=== PATIENT | female | born 1980 | race Caucasian/White ===

== ENCOUNTER → 2017-04-12 | Outpatient (CLI) | payer OTHER ==
--- NOTE | 2017-04-12 17:56 | RADIOLOGY REPORT (SQ) ---
EXAM DESCRIPTION: U/S THYROID/SFT TISS HD NECK COMPLETED DATE/TIME: 04/12/2017 5:23 pm REASON FOR STUDY: R22.1 LOCALIZED SWELLING, MASS AND LUMP, NECK R22.1 LOCALIZED SWELLING, MASS AND LUMP, NECK COMPARISON: None. TECHNIQUE: Dynamic and static tobar-scale images acquired of the thyroid gland. Selected additional c olor/power Doppler images recorded. All images stored to PACS. LIMITATIONS: None. FINDINGS: RIGHT LOBE: Normal size. Homogeneous echotexture. No cystic or solid masses. LEFT LOBE: Normal size. Homogeneous echotexture. No cystic or solid masses. ISTHMUS: Normal size. Homogeneous echotexture. No cystic or solid masses. OTHER: No other significant finding. IMPRESSION: NORMAL THYROID ULTRASOUND. NO ABNORMAL FINDINGS IN THE ADJACENT SOFT TISSUES OF THE NEC K. TECHNICAL DOCUMENTATION: JOB ID: [id number] [employer]- All Rights Reserved
== END ==
LOC: RAD 16:34
PROVIDERS: ATTEND Family Medicine
DX: R22.1 Localized swelling, mass and lump, neck (principal)
CPT/HCPCS: 76536

== ENCOUNTER 2017-04-15 10:58 | Day surgery (SDC) | payer OTHER ==
[2017-04-15] MEDS ORDERED: ONDANSETRON HCL INJ/PF 4 MG/2 ML SDV ONE (12:16)
[2017-04-15] MEDS ORDERED: NALOXONE HCL INJ/PF 0.4 MG/1 ML SDV ONE (12:16)
[2017-04-15] MEDS ORDERED: GLYCOPYRROLATE INJ 0.4 MG/2 ML VIAL ONE (12:16)
[2017-04-15] MEDS ORDERED: EPINEPHRINE INJ 1 MG/10 ML DISP.SYRIN ONE (12:17)
[2017-04-15] MEDS ORDERED: FLUMAZENIL INJ 0.5 MG/5 ML VIAL ONE (12:17)
[2017-04-15] MEDS: MIDAZOLAM 2 MG/2 ML INJ ONE ×2 (12:24→12:28)
[2017-04-15] MEDS: FENTANYL CITRATE INJ/PF 100 MCG/2 ML AMPUL ONE ×2 (12:26→12:30)
--- NOTE | 2017-04-15 12:40 | Operative Report ---
Operative Report DATE OF SURGERY: 04/15/17 Operative Report: The risks benefits and alternatives of the procedure explained to the patient in detail and informed consent is obtained.A GIF Olympus video scope was inserted into the patient's mouth and hypopharynx, the esophagus is identified intubated and insufflated, the scope was then advanced through the esophagus stomach and duodenum, retroflexion maneuver is done, the esophagus stomach and first and second portions of the duodenum examined PREOPERATIVE DIAGNOSIS: Epigastric pain, right upper quadrant pain. POSTOPERATIVE DIAGNOSIS: Gastritis status post biopsy rule out Helicobacter pylori OPERATION: EGD with biopsy SURGEON: RODRÍGUEZ GRAHAM ANESTHESIA: LMAC - 4 mg of Versed, 125 mcg of fentanyl. Conscious sedation monitoring time 30 minutes. TISSUE REMOVED OR ALTERED: Gastric mucosal specimens obtained COMPLICATIONS: None. ESTIMATED BLOOD LOSS: None. INTRAOPERATIVE FINDINGS: As noted above. PROCEDURE: Patient tolerated procedure well. No immediate postprocedure complications are noted. Patient discharged in good condition. Discharge date 04/15/2017. Discharge diet: Regular. Discharge activity: Regular. Proceed with HIDA scan We will wait on pathology Further recommendations to follow Patient is instructed call the office or proceed to the emergency room should there be any further problems or questions.
[2017-04-15 13:45] VITALS: BP 105/70
== END 2017-04-15 13:50 | disposition home or self-care (01) ==
LOC: END 10:58
PROVIDERS: ATTEND Internal Medicine Gastroenterology
PROC: 0DB68ZX Excision of Stomach, Via Natural or Artificial Opening Endoscopic, Diagnostic (ICD-10-PCS; principal; 2017-04-15 12:00)
DX: K29.70 Gastritis, unspecified, without bleeding (principal); K21.9 Gastro-esophageal reflux disease without esophagitis; Z79.899 Other long term (current) drug therapy; Z88.5 Allergy status to narcotic agent
CPT/HCPCS: 43239; 88305 ×2; J2250; J3010; J0171; J2310; J2405; J3490

== ENCOUNTER → 2017-04-16 | Outpatient (CLI) | payer OTHER ==
--- NOTE | 2017-04-16 11:29 | RADIOLOGY REPORT (SQ) ---
EXAM DESCRIPTION: NM HIDA SCAN WITH CCK COMPLETED DATE/TIME: 04/16/2017 11:13 am REASON FOR STUDY: RUQ PAIN (R10.11) R10.11 RIGHT UPPER QUADRANT PAIN COMPARISON: CT chest 07/25/2014 RADIONUCLIDE AND DOSE: DOSAGE RADIONUCLIDE: 5.5 millicuries Tc99m Mebrofenin. DOSAGE CCK: 1.9 micrograms. DOSAGE MORPHINE: Not required. The route of agent administration: Intravenous TECHNIQUE: Serial imaging right upper quadrant up to 60 minutes following injection of radionuclide. CCK injected after gallbladder visualized. LIMITATIONS: None. FINDINGS: LIVER: Normal visualization without areas of photopenia. INTRAHEPATIC BILE DUCTS: Normal visualization COMMON BILE DUCT: Normal visualization GALLBLADDER: Normal visualization. Calculated ejection fraction of 29%. Normal range is greater th an 35%. PHYSICAL RESPONSE: Patients presenting complaint was reproduced. OTHER: No other significant finding. IMPRESSION: NO SCINTIGRAPHIC EVIDENCE OF CYSTIC DUCT OR COMMON DUCT OBSTRUCTION. DEPRESSED GALLBLADDER EJECTION FRACTION IV CCK REPRODUCED THE PATIENT'S SYMPTOMS TECHNICAL DOCUMENTATION: JOB ID: [id number] [employer]- All Rights Reserved
== END ==
LOC: RAD 08:25
PROVIDERS: ATTEND Internal Medicine Gastroenterology
DX: R10.11 Right upper quadrant pain (principal)
CPT/HCPCS: 78227; J2805; A9537; Q9969

== ENCOUNTER 2017-05-13 13:28 | Emergency (ER) | payer OTHER ==
[2017-05-13] MEDS ORDERED: HYDROCODONE/ACETAMINOPHEN 5-325 MG TABLET PO ONE (14:53)
--- NOTE | 2017-05-13 14:54 | ER Document Report ---
ED Medical Screen (RME) - General Chief Complaint: Abdominal Pain Stated Complaint: RIGHT SIDE PAIN Time Seen by Provider: 05/13/17 14:26 Mode of Arrival: Ambulatory Information source: Patient Notes: 36-year-old female presents with complaints of right upper quadrant abdominal pain of month's duration. Patient has had ultrasounds HIDA scans. Patient notes continued pain I have greeted and performed a rapid initial assessment of this patient. A comprehensive ED assessment and evaluation of the patient, analysis of test results and completion of the medical decision making process will be conducted by additional ED providers. PHYSICAL EXAMINATION: GENERAL: Well-appearing, well-nourished and in no acute distress. HEAD: Atraumatic, normocephalic. EYES: Pupils equal round extraocular movements intact, conjunctiva are normal. ENT: Nares patent NECK: Normal range of motion LUNGS: No respiratory distress Musculoskeletal: Normal range of motion NEUROLOGICAL: Normal speech, normal gait. PSYCH: Normal mood, normal affect. SKIN: Warm, Dry, normal turgor, no rashes or lesions noted. TRAVEL OUTSIDE OF THE [place] IN LAST 30 DAYS: No - Related Data Allergies/Adverse Reactions: morphine Allergy (Severe, Verified 05/13/17 14:23) Anaphylaxis Shellfish * [Shellfish] Allergy (Severe, Verified 05/13/17 14:23) Anaphylaxis strawberry Adverse Reaction (Severe, Verified 05/13/17 14:23) Anaphylaxis watermelon Adverse Reaction (Severe, Verified 05/13/17 14:23) Anaphylaxis Past Medical History - Social History Chew tobacco use (# tins/day): No Frequency of alcohol use: Rare Drug Abuse: None - Past Medical History Cardiac Medical History: Reports: Hx Hypertension Denies: Hx Coronary Artery Disease, Hx Heart Attack Pulmonary Medical History: Reports: Hx Pneumonia Denies: Hx Asthma, Hx Bronchitis, Hx COPD Neurological Medical History: Denies: Hx Cerebrovascular Accident, Hx Seizures Renal/ Medical History: Denies: Hx Peritoneal Dialysis GI Medical History: Reports: Hx Gastroesophageal Reflux Disease Musculoskeltal Medical History: Denies Hx Arthritis Psychiatric Medical History: Reports: Hx Anxiety Past Surgical History: Reports: Hx Hysterectomy - Immunizations Hx Diphtheria, Pertussis, Tetanus Vaccination: Yes Influenza Administration Date for 12/2016 - 05/2017 Season: 12/13/16 Physical Exam - Vital signs Vitals: Temp Pulse Resp BP Pulse Ox 98.7 F 92 18 127/82 H 96 05/13/17 13:33 05/13/17 13:33 05/13/17 13:33 05/13/17 13:33 05/13/17 13:33 Course - Vital Signs Vital signs: Temp Pulse Resp BP Pulse Ox 98.7 F 92 18 127/82 H 96 05/13/17 13:33 05/13/17 13:33 05/13/17 13:33 05/13/17 13:33 05/13/17 13:33
[2017-05-13 15:25] LABS: ABSOLUTE EOSINOPHILS # (AUTO) 0.1 10^3/uL (0.0-0.6); ABSOLUTE LYMPHOCYTES (AUTO) 0.8 10^3/uL (0.5-4.7); ABSOLUTE MONOCYTES (AUTO) 0.5 10^3/uL (0.1-1.4); ABSOLUTE NEUT (AUTO) 4.6 10^3/uL (1.7-8.2); BASOPHILS % (AUTO) 0.4 % (0-2); EOSINOPHILS % (AUTO) 1.6 % (0-6); HEMATOCRIT 40.1 % (36.0-47.0); HEMOGLOBIN 14.2 g/dL (12.0-15.5); LYMPHOCYTES % (AUTO) 12.9 % (13-45); MEAN CORPUSCULAR HEMOGLOBIN 30.7 pg (27.0-33.4); MEAN CORPUSCULAR HGB CONC 35.5 g/dL (32.0-36.0); MEAN CORPUSCULAR VOLUME 87 fl (80-97); MONOCYTES % (AUTO) 7.9 % (3-13); PLATELET COUNT 194 10^3/uL (150-450); RED BLOOD COUNT 4.63 10^6/uL (3.72-5.28); RED CELL DISTRIBUTION WIDTH 12.4 % (11.5-14.0); SEGMENTED NEUTROPHILS % (AUTO) 77.2 % (42-78); TOTAL CELLS COUNTED % (AUTO) 100 %
[2017-05-13 15:38] LABS: ALANINE AMINOTRANSFERASE 32 U/L (9-52); ALBUMIN 4.5 g/dL (3.5-5.0); ALKALINE PHOSPHATASE 63 U/L (38-126); ANION GAP 11 (5-19); ASPARTATE AMINO TRANSFERASE 26 U/L (14-36); BILIRUBIN,DIRECT 0.4 mg/dL (0.0-0.4); BILIRUBIN,TOTAL 0.7 mg/dL (0.2-1.3); BLOOD UREA NITROGEN 11 mg/dL (7-20); CALCIUM 9.4 mg/dL (8.4-10.2); CARBON DIOXIDE 26 mmol/L (22-30); CHLORIDE 101 mmol/L (98-107); GLUCOSE 93 mg/dL (75-110); LIPASE 37.2 U/L (23-300); SODIUM 137.5 mmol/L (137-145); TOTAL PROTEIN 7.2 g/dL (6.3-8.2)
[2017-05-13] MEDS ORDERED: FAMOTIDINE INJ/PF 20 MG/2 ML SDV IV ONE (15:40)
[2017-05-13] MEDS ORDERED: ONDANSETRON HCL INJ/PF 4 MG/2 ML SDV IV ONE (15:40)
[2017-05-13 15:42] LABS: ALANINE AMINOTRANSFERASE 32 U/L (9-52); ALBUMIN 4.5 g/dL (3.5-5.0); ALKALINE PHOSPHATASE 63 U/L (38-126); ASPARTATE AMINO TRANSFERASE 26 U/L (14-36); BILIRUBIN,DIRECT 0.4 mg/dL (0.0-0.4); BILIRUBIN,TOTAL 0.7 mg/dL (0.2-1.3); TOTAL PROTEIN 7.2 g/dL (6.3-8.2)
--- NOTE | 2017-05-13 17:23 | RADIOLOGY REPORT (SQ) ---
EXAM DESCRIPTION: U/S ABDOMEN LIMITED W/O DOP COMPLETED DATE/TIME: 05/13/2017 5:09 pm REASON FOR STUDY: ruq pain history of poor EF COMPARISON: None. TECHNIQUE: Dynamic and static grayscale images acquired of the abdomen and recorded on PACS. Additio nal selected color Doppler and spectral images recorded. LIMITATIONS: None. FINDINGS: PANCREAS: No masses. Visualized pancreatic duct normal caliber. LIVER: No masses. Echotexture normal. LIVER VASCULATURE: Normal directional flow of the main portal vein and hepatic veins. GALLBLADDER: No stones. Normal wall thickness. No pericholecystic fluid. ULTRASOUND-DETECTED GALLAGHER'S SIGN: Negative. INTRAHEPATIC DUCTS AND COMMON DUCT: CBD and intrahepatic ducts normal caliber. No filling defects. INFERIOR VENA CAVA: Normal flow. AORTA: No aneurysm. RIGHT KIDNEY: Normal size. Normal echogenicity. No solid or suspicious masses. No hydronephrosis. No calcifications. PERITONEAL AND RIGHT PLEURAL SPACE: No ascites or effusions. OTHER: No other significant findings. IMPRESSION: NORMAL RIGHT UPPER QUADRANT ULTRASOUND. TECHNICAL DOCUMENTATION: JOB ID: [id number] [employer]- All Rights Reserved Reading location - IP/workstation name: [email or web address]
--- NOTE | 2017-05-13 18:16 | ER Document Report ---
ED General - General Chief Complaint: Abdominal Pain Stated Complaint: RIGHT SIDE PAIN Time Seen by Provider: 05/13/17 14:26 Mode of Arrival: Ambulatory Notes: 36-year-old female with a history of GERD, gastritis, esophagitis and known biliary colic presents with complaint of right upper quadrant pain that started 3 hours prior to arrival.Pain is described as sharp, constant and with radiation to her back.Patient also describes associated diarrhea for 2 days. She denies any black or bloody stools.Patient has been seen previously for her gallbladder and underwent an MRCP which showed a low ejection fraction.Patient denies any fever, chills, chest pain or shortness of breath.She denies any recent antibiotic use, sick contacts. TRAVEL OUTSIDE OF THE [place] IN LAST 30 DAYS: No - HPI Onset: Just prior to arrival Onset/Duration: Sudden, Constant Quality of pain: Sharp, Stabbing Severity: Moderate Pain Level: 2 Associated symptoms: Diarrhea, Nausea. denies: Body/muscle aches, Chest pain, Nonproductive cough, Fever Exacerbated by: Movement Relieved by: Denies Similar symptoms previously: Yes Recently seen / treated by doctor: No - Related Data Allergies/Adverse Reactions: morphine Allergy (Severe, Verified 05/13/17 14:23) Anaphylaxis Shellfish * [Shellfish] Allergy (Severe, Verified 05/13/17 14:23) Anaphylaxis strawberry Adverse Reaction (Severe, Verified 05/13/17 14:23) Anaphylaxis watermelon Adverse Reaction (Severe, Verified 05/13/17 14:23) Anaphylaxis Past Medical History - General Information source: Patient - Social History Smoking Status: Former Smoker Cigarette use (# per day): No Chew tobacco use (# tins/day): No Frequency of alcohol use: Rare Drug Abuse: None Family History: Reviewed & Not Pertinent Patient has suicidal ideation: No Patient has homicidal ideation: No - Past Medical History Cardiac Medical History: Reports: Hx Hypertension Denies: Hx Coronary Artery Disease, Hx Heart Attack Pulmonary Medical History: Reports: Hx Pneumonia Denies: Hx Asthma, Hx Bronchitis, Hx COPD Neurological Medical History: Denies: Hx Cerebrovascular Accident, Hx Seizures Renal/ Medical History: Denies: Hx Peritoneal Dialysis GI Medical History: Reports: Hx Gastroesophageal Reflux Disease, Other - Gastritis, esophagitis. Musculoskeltal Medical History: Denies Hx Arthritis Psychiatric Medical History: Reports: Hx Anxiety Past Surgical History: Reports: Hx Hysterectomy, Hx Tubal Ligation - Immunizations Hx Diphtheria, Pertussis, Tetanus Vaccination: Yes Review of Systems - Review of Systems Constitutional: denies: Diaphoresis, Fever EENT: No symptoms reported Gastrointestinal: Abdominal pain, Diarrhea, Nausea. denies: Blood in vomit, Last bowel movement Physical Exam - Vital signs Vitals: Temp Pulse Resp BP Pulse Ox 98.7 F 92 18 127/82 H 96 05/13/17 13:33 05/13/17 13:33 05/13/17 13:33 05/13/17 13:33 05/13/17 13:33 - Abdominal Inspection: Normal Distension: No distension Bowel sounds: Normal Tenderness: Tender, Denis's sign. No: Guarding, Rebound Organomegaly: No organomegaly Course - Re-evaluation Re-evalutation: 05/14/17 14:27 Patient was reevaluated and states her nausea and pain have greatly improved. 36-year-old female with known biliary colic presents with complaint of sudden onset of right upper quadrant pain that started just prior to arrival.She has been seen previously for this and found to have a low ejection fraction of the gallbladder.Upon arrival vitals reviewed and within normal limits. Patient does not appear toxic or dehydrated. She is in no acute distress. Exam was significant for right upper quadrant tenderness without rebound or guarding. Laboratory findings including CBC, CMP were within normal limits. Ultrasound of the right upper quadrant was obtained and showed no evidence of cholecystitis.Patient was able to tolerate fluids prior to discharge. She was advised that she should follow-up with a surgeon for possible elective cholecystectomy.Patient and are agreeable with plan and discharge home. 05/14/17 14:29 Alergies morphine Allergy (Severe, Verified 05/13/17 14:23) Anaphylaxis Shellfish * [Shellfish] Allergy (Severe, Verified 05/13/17 14:23) Anaphylaxis strawberry Adverse Reaction (Severe, Verified 05/13/17 14:23) Anaphylaxis watermelon Adverse Reaction (Severe, Verified 05/13/17 14:23) Anaphylaxis Patient Prescrptions Sertraline HCl [Sertraline HCl] 150 mg PO DAILY 06/26/15 Cholecalciferol (Vitamin D3) [Vitamin D3] 1,000 unit PO DAILY 04/13/17 Lisinopril 10 mg PO DAILY 04/13/17 Multivit-Min/Iron/Folic Acid/K [Multi-Day Plus Minerals Tablet] 1 each PO DAILY 04/13/17 Buspirone HCl [Buspirone HCl] 5 mg PO DAILY 05/13/17 Isolation Standard Height 5 ft 5 in Weight 90.4 kg : No Discharge Information ED Provider: MIGUEL RICHARDS Status: Discharge Time Seen by Provider: 05/13/17 14:26 Condition: Good Triaged At: 05/13/17 13:29 Emergency Discharge Date/Time: 05/13/17 18:52 Emergency Discharge Disposition: HOME, SELF-CARE Clinical Impression Biliary colic Emergency Discharge Comment: Discharge Intervention Last Done Vital Signs (ED) Discharge Documentation 05/13/17 18:52 Query Result Condition at discharge Improved IV removed Yes Catheter clear to visual inspection Yes Pain Level Denies Vital signs performed within 30 minutes Yes of discharge? DC Transport Method Personal Vehicle DC Method Ambulated Discharge instructions given to pt Verbalized understanding of discharge Yes instructions Notes pt has no complaints at this time Left Without Being Seen (LWBS) Left Against Medical Advice (AMA)/Eloped Instructions: Abdominal Pain ([facility]) Gallbladder Disease ([facility]) Stand-Alone Forms: Prescriptions: Visit Report - Forms: - Referrals: JAMES ROMAN MD (Primary Care Provider) - Follow up as needed CAROLINA CERRATO MD (ACTIVE STAFF) - Follow up as needed Intake and Output 05/13/17 05/14/17 05/15/17 06:59 06:59 06:59 Weight 90.4 kg Radiology Reports Abdomen Ultrasound 05/13/17 15:41 IMPRESSION: NORMAL RIGHT UPPER QUADRANT ULTRASOUND. Medications Discontinued Medications Generic Name Dose Route Start Last Admin Trade Name Freq PRN Reason Stop Dose Admin Hydrocodone Bitart/Acetaminophen 1 tab 05/13/17 14:53 05/13/17 15:13 Tenstrike 5-325 Mg Tablet PO 05/13/17 14:54 1 tab NOW ONE Administration Famotidine 20 mg 05/13/17 15:40 05/13/17 16:10 Pepcid Inj/Pf 20 Mg/2 Ml Sdv IV 05/13/17 15:41 20 mg NOW ONE Administration Ondansetron HCl 4 mg 05/13/17 15:40 05/13/17 16:09 Zofran Inj/Pf 4 Mg/2 Ml Sdv IV 05/13/17 15:41 4 mg NOW ONE Administration Nursing Notes 05/13/17 15:52 Nursing Note by GAURAV ANN u/s called by this pct; no answer at this time Initialized on 05/13/17 15:52 - END OF NOTE 05/13/17 14:24 ED Nursing Note by CHELE ONEIL pt comes to ed from home via pov for c/o sudden onset ruq pain at 1230 after a few bites of salad and baked potato, intermittent sharp radiates into her back by shoulder blades. Pt states she has a history of gallbladder issues and [facility] that her galbladder had "thick badillo". +nausea. pt drinking as much water as possible. Pt unable to sit still in chair in PIT exam room, pt rocking back and forth in chair. Initialized on 05/13/17 14:24 - END OF NOTE 05/13/17 13:29 ED Nursing Note by REDDY GARCIA Pt presents to the ED for complaints of right sided abdominal pain that started a few hours ago. Pt states nausea and vomiting and diarrhea. Pt alert and oriented x4. Breathing even and unlabored. Pt ambulatory at this time. Initialized on 05/13/17 13:29 - END OF NOTE Orders 05/13/17 14:53 Saline Lock (ED) NOW Hydrocodone/Acetaminophen [Tenstrike 5-325 mg Tablet] 1 tab PO NOW ONE 05/13/17 15:11 CBC WITH DIFF [HEME] Stat COMPREHENSIVE METABOLIC PANEL [CHEM] Stat LFT [LIVER FUNCTION PANEL] [CHEM] Stat LIPASE [CHEM] Stat 05/13/17 15:40 Famotidine/Pf [Pepcid Inj/Pf 20 mg/2 ml Sdv] 20 mg IV NOW ONE Ondansetron HCl/Pf [Zofran Inj/Pf 4 mg/2 ml Sdv] 4 mg IV NOW ONE 05/13/17 15:41 Gallbladder Ultrasound [U/S ABDOMEN LIMITED W/O DOP] [US] Stat Vital Signs Temp Pulse Resp BP Pulse Ox 05/13/17 18:50 98.6 F 69 103/61 96 05/13/17 13:33 98.7 F 92 18 127/82 H 96 Lab Result Diagrams 05/13/17 15:11 05/13/17 15:11 Assessments/Treatments Discharge Documentation Start: 05/13/17 13:28 Freq: Status: Active Activity Type Activity Date Activity User E-Sign Co-Sign Detail Recorded Client Recorded Date Recorded By Document 05/13/17 18:52 CALLI [id number] 05/13/17 18:52 RJLachelle 05/13/17 18:52 Discharge Documentation Condition at discharge Improved IV removed Yes Catheter clear to visual inspection Yes Pain Level Denies Vital signs performed within 30 minutes Yes of discharge? DC Transport Method Personal Vehicle Patient Discharged Via Ambulated Discharge instructions given to pt Verbalized understanding of discharge Yes instructions Notes pt has no complaints at this time ED Nursing Assessment Start: 05/13/17 13:30 Freq: NOW, Q12H Status: Active Activity Type Activity Date Activity User E-Sign Co-Sign Detail Recorded Client Recorded Date Recorded By Document 05/13/17 16:02 HUONG [id number] 05/13/17 16:36 HUONG 05/13/17 16:02 Neurological Assessment Level of Consciousness Awake Alert Appropriate Arousable To Name Orientation Oriented to Person Oriented to Place Oriented to Time Eye Opening Spontaneous Verbal Response Oriented Motor Response Obeys Commands GCS Total Score (15 points) 15 Psychological Assessment Mood Description Calm Relaxed Speech Pattern Clear Unclear Rational Thinking Intact Cardiovascular Assessment Bilateral Radial -Pulses Normal -Pulse Assessment Method Palpation Capillary Refill Less than 3 Seconds Respiratory Assessment Respiratory Pattern Normal Respiratory Effort Normal Labored Respiratory Depth Normal Chest Expansion Symmetrical Oxygen Delivery Method Room Air Skin Assessment Skin Color Normal Espino Skin Temperature Warm Skin Moisture Dry Gastrointestinal Assessment Abdomen Description Soft Tender Bowel Pattern Normal GI Symptoms Nausea Urinary Assessment Urinary Method Voiding Bladder Pattern Normal Medical/Surgical History Hx Arthritis No Hx Asthma No Hx Bronchitis No Hx Chronic Obstructive Pulmonary Disease No (COPD) Hx Gastroesophageal Reflux Disease Yes Hx Heart Attack No Hx Hypertension Yes Hx Pneumonia Yes Hx Seizures No Hx Hysterectomy Yes Hx Tubal Ligation Yes Pivot Start: 05/13/17 13:28 Freq: NOW Status: Complete Activity Type Activity Date Activity User E-Sign Co-Sign Detail Recorded Client Recorded Date Recorded By Document 05/13/17 13:29 EPI [id number] 05/13/17 13:30 EPI 05/13/17 13:29 Pivot Chief Complaint Abdominal Pain Priority Level 3H Pain Level 4 Comfort Measures Provided Declined Is This a Long Bone Pain Patient? No Stroke/TIA Suspected No TRAVEL OUTSIDE OF THE [place] IN LAST 30 No DAYS 05/13/17 13:29 ED Nursing Note by REDDY GARCIA Pt presents to the ED for complaints of right sided abdominal pain that started a few hours ago. Pt states nausea and vomiting and diarrhea. Pt alert and oriented x4. Breathing even and unlabored. Pt ambulatory at this time. Initialized on 05/13/17 13:29 - END OF NOTE Procedures Start: 05/13/17 13:30 Freq: Status: Active Activity Type Activity Date Activity User E-Sign Co-Sign Detail Recorded Client Recorded Date Recorded By Document 05/13/17 16:43 KSI [email or web address] 05/13/17 16:43 KSI 05/13/17 16:43 Procedures Radiology Test US Radiology at bedside No Transportation: Wheelchair Saline Lock (ED) Start: 05/13/17 14:53 Freq: NOW Status: Active Activity Type Activity Date Activity User E-Sign Co-Sign Detail Recorded Client Recorded Date Recorded By Document 05/13/17 16:02 HUONG [id number] 05/13/17 16:37 HUONG 05/13/17 16:02 Saline Lock Right Antecubital -IV Catheter Type Saline Lock -IV Catheter Gauge (gauge) 20 -Redness or swelling noted at the site No -IV site patent/flushes without Yes difficulty Status Rounds Assessment Start: 05/13/17 13:30 Freq: Q1 Status: Active Activity Type Activity Date Activity User E-Sign Co-Sign Detail Recorded Client Recorded Date Recorded By Document 05/13/17 14:00 JDA [email or web address] 05/13/17 14:29 JDA Document 05/13/17 17:00 HUONG [id number] 05/13/17 17:11 HUONG 05/13/17 05/13/17 14:00 17:00 ED Status Rounds Hourly Rounding Complete Yes Yes Call Carter within Reach Yes Patient Location Patient in Room Other Location Main lobby Patient Activity Awake Awake Family/Guardian at Bedside Patient Condition No Changes From Previous Assessment Triage- Gastrointestinal Start: 05/13/17 13:30 Freq: NOW Status: Complete Activity Type Activity Date Activity User E-Sign Co-Sign Detail Recorded Client Recorded Date Recorded By Document 05/13/17 14:24 JDA [email or web address] 05/13/17 14:28 JDA 05/13/17 14:24 HPI- Gastrointestinal Problem Onset Just prior to arrival Associated symptoms nausea Vomiting X 0 Diarrhea X 0 Similar symptoms previously No Recently seen / treated by doctor No Abdominal Pain Onset Location RUQ Pain Level 5 Timing Still present Quality Intermittent Severe Radiating Sharp Stabbing Exacerbated by Sitting Food Relieved by Standing Severity at worst Severe Severity when seen in ED Severe Infection Control Screen CRE Precaution Screen Negative History Isolation Precautions Standard Triage Nursing Assessment Allergies Verified Yes Pre-Hospital Treatment None Seeking Treatment Today For No Mental Health Issues Communication Barriers No Hearing Impaired No Primary Language [place] [employer] or Cultural beliefs that would No interfere with care Do You Live Alone? Yes Is there family present? Yes High Risk Screen None Signs and Symptoms of Abuse/Neglect No Present Feels Threatened In Home Enviroment No Feels Threatened In a Relationship No Development Age appropriate Thoughts of by Suicide in the Last No 30 Days Homicidial Thoughts in the Last 30 Days No Smoking Status Former Smoker Chew tobacco use (# tins/day) No Drug Abuse None Frequency of alcohol use Rare Immunizations Up to Date Yes: Flu + Medication Reconciliation Form Completed Peritoneal Dialysis Patient No Hemo-Dialysis Treatment Today No 05/13/17 14:24 ED Nursing Note by CHELE ONEIL pt comes to ed from home via pov for c/o sudden onset ruq pain at 1230 after a few bites of salad and baked potato, intermittent sharp radiates into her back by shoulder blades. Pt states she has a history of gallbladder issues and was told on [facility] that her galbladder had "thick badillo". +nausea. pt drinking as much water as possible. Pt unable to sit still in chair in PIT exam room, pt rocking back and forth in chair. Initialized on 05/13/17 14:24 - END OF NOTE Vital Signs CAPTURE Start: 05/13/17 13:30 Freq: Status: Active Activity Type Activity Date Activity User E-Sign Co-Sign Detail Recorded Client Recorded Date Recorded By Document 05/13/17 13:33 DDa [email or web address] 05/13/17 13:34 DDa Document 05/13/17 18:50 CALLI [id number] 05/13/17 18:52 RJLachelle 05/13/17 05/13/17 13:33 18:50 VS4 Data Capture Temperature (97.0 F-100.4 F) 98.7 F 98.6 F VS4 Temperature Source Oral Pulse Rate (60-100) 92 69 Pulse Source BP Machine Respiratory Rate (12-20) 18 Pulse Oximetry (92-100) 96 96 Oxygen Delivery Method Room Air BP Location Right Arm BP Position Sitting Blood Pressure (100/60-125/85) 127/82 103/61 Blood Pressure Mean (mm Hg) 97 75 Height 5 ft 5 in Weight (1 kg-500 kg) 90.4 kg Abdomen Ultrasound 05/13/17 15:41 IMPRESSION: NORMAL RIGHT UPPER QUADRANT ULTRASOUND. - Vital Signs Vital signs: Temp Pulse Resp BP Pulse Ox 98.6 F 69 18 103/61 96 05/13/17 18:50 05/13/17 18:50 05/13/17 13:33 05/13/17 18:50 05/13/17 18:50 - Laboratory Result Diagrams: 05/13/17 15:11 05/13/17 15:11 Laboratory results interpreted by me: 05/13/17 15:11 Lymphocytes % 12.9 L Discharge - Discharge Clinical Impression: Biliary colic Condition: Good Disposition: HOME, SELF-CARE Instructions: Abdominal Pain ([facility]), Gallbladder Disease ([facility]) Referrals: JAMES ROMAN MD [Primary Care Provider] - Follow up as needed CAROLINA CERRATO MD [ACTIVE STAFF] - Follow up as needed
[2017-05-13 18:52] VITALS: BP 103/61
== END 2017-05-13 18:52 | disposition home or self-care (01) ==
LOC: ER 13:28
DX: K80.50 Calculus of bile duct without cholangitis or cholecystitis without obstruction (principal); R10.84 Generalized abdominal pain; R19.7 Diarrhea, unspecified; R11.0 Nausea; I10 Essential (primary) hypertension; Z88.6 Allergy status to analgesic agent; Z91.013 Allergy to seafood; Z90.710 Acquired absence of both cervix and uterus; Z87.891 Personal history of nicotine dependence
CPT/HCPCS: 99284; 96374; 96375; 36415; 83690; 85025; 80076; 80053; 76705; J2405; S0028

== ENCOUNTER 2017-07-08 08:24 | Day surgery (SDC) | payer OTHER ==
[~2017-07-08 08:24] MED LIST: ACETAMINOPHEN 325 MG TABLET PO PRN; CEFAZOLIN 1 GM/D5W RTU 1 GM/50 ML RTUPB IV PRN; LACTATED RINGERS 1000 ML IV PRN; LIDOCAINE 0.5% INJ-PF (5 MG/ML) 50 ML SDV SUBCUT PRN
[2017-07-08] MEDS ORDERED: KETOROLAC TROMETHAMINE 60 MG/2 ML SDV ONE (12:58)
[2017-07-08] MEDS ORDERED: EPHEDRINE SULFATE INJ 50 MG/1 ML AMPULE ONE (12:58)
[2017-07-08] MEDS ORDERED: MIDAZOLAM 2 MG/2 ML INJ ONE (12:58)
[2017-07-08] MEDS ORDERED: LIDOCAINE 2% INJ-PF (20 MG/ML) 10 ML AMPUL ONE (12:58)
[2017-07-08] MEDS ORDERED: FENTANYL CITRATE INJ/PF 100 MCG/2 ML AMPUL ONE ×2 (12:58→14:11)
[2017-07-08] MEDS ORDERED: ACETAMINOPHEN 100 ML IV ONE (12:59)
[2017-07-08] MEDS ORDERED: ONDANSETRON HCL INJ/PF 4 MG/2 ML SDV ONE (12:59)
[2017-07-08] MEDS ORDERED: PROPOFOL INJ 200 MG/20 ML VIAL IV ONE (12:59)
[2017-07-08] MEDS ORDERED: DEXAMETHASONE SOD PHOSPHATE INJ 4 MG/1 ML VIAL ONE (12:59)
[2017-07-08] MEDS ORDERED: BUPIVACAINE HCL 0.25 % INJ/PF (2.5 MG/1 ML) 30 ML VIAL ONE (12:59)
[2017-07-08] MEDS ORDERED: ONDANSETRON HCL INJ/PF 4 MG/2 ML SDV IV PRN (13:42)
[2017-07-08] MEDS ORDERED: PROMETHAZINE HCL INJ 25 MG/1 ML VIAL IV PRN ×2 (13:42)
[2017-07-08] MEDS ORDERED: DIPHENHYDRAMINE HCL 50 MG/ML VIAL IV PRN (13:42)
[2017-07-08] MEDS ORDERED: FENTANYL CITRATE INJ/PF 100 MCG/2 ML AMPUL IV PRN ×3 (13:42)
[2017-07-08] MEDS ORDERED: MEPERIDINE HCL/PF INJ 25 MG/1 ML DISP.SYRIN IV PRN (13:42)
--- NOTE | 2017-07-08 13:42 | EKG REPORT ---
SEVERITY:- NORMAL ECG - SINUS RHYTHM : Confirmed by: Chano Pryor MD 08-Jul-2017 13:41:09
--- NOTE | 2017-07-08 14:10 | Discharge Summary ---
Discharge Summary (SDC) - Discharge Final Diagnosis: Chronic cholecystitis Date of Surgery: 07/08/17 Discharge Date: 07/08/17 Condition: Good Treatment or Instructions: [facility] [address] [place] [id number] Discharge Instructions: Laparoscopic Surgery 1. General Information: a. DO NOT DRIVE a car or operate dangerous machinery for 3-4 days or while taking narcotic pain pills. b. DO NOT consume alcohol, tranquilizers, sleeping medications or any non- prescribed medications for 24 hours unless approved by your doctor or as long as taking narcotic prescription medications. c. DO NOT make important decisions or sign any important papers for the first 24 hours after surgery. d. When discharged home the same day of surgery have a responsible person with you for the first night. 2. Activity Restrictions:2 weeks. a. NO heavy lifting, straining abdominal muscles, bending over a lot, yard work, house work, or sports for 2 weeks. b. c. It is fine to go for walks, up and down steps, ride in a car. d. Elevate your head when sleeping/resting. 3. Treatment: a. You may shower 24 hours after surgery, no baths or swimming for 2 weeks. Remove band-aids or dressings before shower but leave paper strips (steri-strips ) on the skin to fall off on their own. If still on at postoperative visit they will be removed then. b. Drainage of fluid or blood is not unusual from an incision. If occurs, you can clean with peroxide and cotton ball daily and cover with dry gauze until the wound seals. c. If a lot of bleeding occurs, you can hold pressure with a gauze or cloth over the site for 10 minutes and it will usually stop. If bleeding continues you will need to call for possible evaluation in office or emergency room. 4. Medications: a. You may switch to plain Tylenol, Advil or Aleve as you transition from the narcotic. Many adults find good pain relief with Advil 600-800 mg three times a day with meals. This can cause indigestion, ulcers, and kidney problems with long-term use. b. You should resume all normal medications unless a change is specified by your doctors. c. Begin with clear liquids and may progress to your normal diet if not nauseated. No high fat, high protein foods the day of surgery. Normal diet 6. The following may occur after laparoscopic surgery: a. Shoulder or upper back ache from retained gas that should resolve in 1-2 days b. Soreness and bruising at incision sites will resolve with time. c. Scrotal swelling (labia in women) and bruising is often seen after hernia surgery. d. Sore throat e. Fatigue may last days to weeks. f. Difficulty urinating may occur and may need to come into emergency room for urinary catheter placement. 7. Notify Physician If: a. Worsening or pain not improved with pain medication b. Persistent nausea and vomiting c. Fever above 101 d. Persistent bleeding or swelling at operative site e. Unable to urinate and uncomfortable bladder 6-8 hours after surgery 8..Follow Up Care: a. Schedule a follow up appointment with your doctor for 2 weeks. In the event of any postoperative problems or questions or you may call the office during business hours or the On-Call physician evenings and weekends at [facility]. [facility] I understand the instructions for my postoperative care as described above and a copy has been given to me. Patient/Significant Other Witness Date Referrals: JAMES ROMAN MD [Primary Care Provider] - Discharge Diet: As Tolerated Discharge Activity: Activity As Tolerated Home Care Assistance: None Needed Report the Following to Your Physician Immediately: Shortness of Breath, Increase in Pain, Fever over 101 Degrees
--- NOTE | 2017-07-08 14:13 | Operative Report ---
Operative Report DATE OF SURGERY: 07/08/17 PREOPERATIVE DIAGNOSIS: Chronic cholecystitis POSTOPERATIVE DIAGNOSIS: Same OPERATION: Laparoscopic cholecystectomy SURGEON: YSABEL COMER ANESTHESIA: GA TISSUE REMOVED OR ALTERED: 1 gallbladder with contents COMPLICATIONS: None ESTIMATED BLOOD LOSS: Scant INTRAOPERATIVE FINDINGS: See below PROCEDURE: After obtaining informed consent, the patient was taken to the operating room. General Anesthesia was induced; the arms were extended, and the abdomen was exposed, and prepped and draped in a sterile fashion. Instrumentation was set up for laparoscopic cholecystectomy. Surgical plan and surgical timeout were conducted. A vertical incision was made above the umbilicus, and a verres needle was inserted uneventfully into the peritoneal cavity. Pneumoperitoneum was established. The verres needle was removed and a 5 mm trocar was inserted and a 5 mm flexible laparoscope was inserted. Visualization of the peritoneal cavity confirmed safe uneventful entry. Under direct visualization 3 additional 5 mm ports were established, one in the subxiphoid position and second in the subcostal position. Were dense adhesions between the gallbladder, duodenum and gastroduodenal area in general. These were taken down under direct visualization using hook cautery and blunt dissection. Visualization of the hepatobiliary anatomy revealed no anatomic variations. A grasper was placed on the fundus of the gallbladder and the gallbladder is elevated over the right surface of the liver; a second grasper was used to grasp the infundibulum of the gallbladder. The neck of the gallbladder and junction with the cystic duct was dissected out. The Cystic artery was in its usual location medial and cephalad to the cystic duct. The grafts were taken. The cystic artery was surrounded with a right angle clamp, clipped twice proximally and divided with laparoscopic scissors. We now opened the triangle of Calot by dividing the peritoneal reflection on both the medial and lateral sides of the cystic duct infundibular junction. The critical view was obtained. Photos were taken we now milked the cystic duct of any possible stones, clipped the cystic duct approximately 2 times once distally and divided with scissors. The gallbladder was now removed from the undersurface of the liver using hook cautery dissection. A small mid all bladder anteriorly running artery likely accessory artery was clipped proximally and distally and divided. Graspers were repositioned and the gallbladder was removed uneventfully from the abdominal cavity through the super umbilical port site incision. The specimen was examined, then passed off to pathology for permanent analysis. We returned to the peritoneal cavity check for bleeding, and evidence of bile leak, and there was none. We Confirmed satisfactory placement of clips on cystic duct and cystic artery were secured . At this point we felt the operation was complete. The subcutaneous tissue was then anesthetized with quarter percent Marcaine Sponge and needle counts are correct. All ports removed under direct visualization pneumoperitoneum evacuated, and 5 mm port wounds closed with 3-0 Vicryl suture, benzoin and Steri-Strips. The patient was extubated, and taken to the recovery room in stable condition.
[2017-07-08] MEDS ORDERED: GLYCOPYRROLATE INJ 0.4 MG/2 ML VIAL ONE ×2 (15:21→15:23)
[2017-07-08] MEDS ORDERED: SUCCINYLCHOLINE CHLORIDE INJ 200 MG/10 ML VIAL ONE (15:21)
[2017-07-08] MEDS ORDERED: VECURONIUM BROMIDE INJ 10 MG VIAL IV ONE (15:21)
[2017-07-08] MEDS ORDERED: NEOSTIGMINE METHYLSULFATE 10 MG/10 ML VIAL ONE (15:23)
[2017-07-08 16:25] VITALS: BP 106/69
== END 2017-07-08 15:55 | disposition home or self-care (01) ==
LOC: OROUT 08:24
PROVIDERS: ATTEND Surgery
DX: K81.1 Chronic cholecystitis (principal); K21.9 Gastro-esophageal reflux disease without esophagitis; I10 Essential (primary) hypertension; K58.9 Irritable bowel syndrome, unspecified; Z88.5 Allergy status to narcotic agent; Z79.899 Other long term (current) drug therapy; Z87.891 Personal history of nicotine dependence
CPT/HCPCS: 88304 ×2; 93005; 93010; 47562; J2250; J0690; J1100; J1885; J3010; J3490 ×2; J0330; J2405; J2704; J0131; 790

== ENCOUNTER → 2017-07-15 | Outpatient (CLI) | payer OTHER ==
[2017-07-15 15:39] LABS: ABSOLUTE EOSINOPHILS # (AUTO) 0.1 10^3/uL (0.0-0.6); ABSOLUTE LYMPHOCYTES (AUTO) 1.4 10^3/uL (0.5-4.7); ABSOLUTE MONOCYTES (AUTO) 0.7 10^3/uL (0.1-1.4); ABSOLUTE NEUT (AUTO) 5.8 10^3/uL (1.7-8.2); BASOPHILS % (AUTO) 0.5 % (0-2); EOSINOPHILS % (AUTO) 1.6 % (0-6); HEMATOCRIT 38.8 % (36.0-47.0); HEMOGLOBIN 13.6 g/dL (12.0-15.5); LYMPHOCYTES % (AUTO) 17.4 % (13-45); MEAN CORPUSCULAR HGB CONC 35.1 g/dL (32.0-36.0); MEAN CORPUSCULAR VOLUME 89 fl (80-97); MONOCYTES % (AUTO) 8.5 % (3-13); PLATELET COUNT 256 10^3/uL (150-450); RED BLOOD COUNT 4.38 10^6/uL (3.72-5.28); RED CELL DISTRIBUTION WIDTH 12.2 % (11.5-14.0); TOTAL CELLS COUNTED % (AUTO) 100 %; WHITE BLOOD COUNT 8.1 10^3/uL (4.0-10.5)
[2017-07-15 15:59] LABS: ALANINE AMINOTRANSFERASE 109 U/L (9-52); ALBUMIN 4.6 g/dL (3.5-5.0); ALKALINE PHOSPHATASE 125 U/L (38-126); ANION GAP 13 (5-19); ASPARTATE AMINO TRANSFERASE 82 U/L (14-36); BILIRUBIN,DIRECT 0.3 mg/dL (0.0-0.4); BILIRUBIN,TOTAL 1.4 mg/dL (0.2-1.3); BLOOD UREA NITROGEN 17 mg/dL (7-20); CALCIUM 10.2 mg/dL (8.4-10.2); CARBON DIOXIDE 29 mmol/L (22-30); CHLORIDE 99 mmol/L (98-107); GLUCOSE 99 mg/dL (75-110); SODIUM 141.3 mmol/L (137-145); TOTAL PROTEIN 7.4 g/dL (6.3-8.2)
== END ==
LOC: OD 15:16
PROVIDERS: ATTEND Physician Assistant Surgical
DX: R10.9 Unspecified abdominal pain (principal); Z90.49 Acquired absence of other specified parts of digestive tract
CPT/HCPCS: 36415; 80048; 80076; 85025

== ENCOUNTER → 2018-08-22 | Outpatient (CLI) | payer OTHER | LOC: LAB 13:19 | PROVIDERS: ATTEND Nurse Practitioner Acute Care | DX: R19.7 Diarrhea, unspecified (principal); R30.0 Dysuria | CPT/HCPCS: 87045; 87086; 87088; 87177; 87205; 87493; 89055 ==

== ENCOUNTER → 2019-05-15 | Outpatient (CLI) | payer OTHER ==
--- NOTE | 2019-05-15 09:54 | RADIOLOGY REPORT (SQ) ---
EXAM DESCRIPTION: LUMBAR SPINE COMPLETE COMPLETED DATE/TIME: 05/15/2019 8:56 am REASON FOR STUDY: LOW BACK PAIN M54.5 LOW BACK PAIN COMPARISON: None. NUMBER OF VIEWS: Five views including obliques. TECHNIQUE: AP, lateral, oblique, and sacral radiographic images acquired of the lumbar spine. LIMITATIONS: None. FINDINGS: MINERALIZATION: Normal. SEGMENTATION: There are 5 lumbar-type vertebral bodies. There is no transitional anatomy at the lumb osacral junction. ALIGNMENT: Normal. VERTEBRAE: The lumbar vertebral body heights are preserved. There is no fracture. DISCS: The intervertebral disc spaces are preserved. POSTERIOR ELEMENTS: Intact. There is no pars interarticularis defect. HARDWARE: None in the spine. PARASPINAL SOFT TISSUES: Normal. PELVIS: Intact. OTHER: The surgical clips projecting within the right upper quadrant and pelvis. IMPRESSION: No osseous abnormality of the lumbar spine. TECHNICAL DOCUMENTATION: JOB ID: [id number] 2010 [employer]- All Rights Reserved Reading location - IP/workstation name: [email or web address]
== END ==
LOC: OD 08:42
PROVIDERS: ATTEND Nurse Practitioner Family
DX: M54.5 Low back pain (principal)
CPT/HCPCS: 72110

== ENCOUNTER 2019-11-17 06:31 | Day surgery (SDC) | payer OTHER ==
[2019-11-17] MEDS ORDERED: PROPOFOL INJ 200 MG/20 ML VIAL IV ONE ×2 (07:35→08:45)
--- NOTE | 2019-11-17 08:37 | Operative Report ---
Operative Report DATE OF SURGERY: 11/17/19 Operative Report: The risk, benefits and alternatives of the procedure including the risk of bleeding, perforation requiring surgery have been explained to the patient in detail and informed consent has been obtained. Patient is placed in a left, lateral decubital position. Timeout was called. Propofol medication is administered. Rectal examination is done which did not reveal any masses, tears or fissures. An Olympus videoscope was introduced into the patient's rectum. Scope was then carefully advanced all the way to the cecum. The cecum was identified by the usual anatomical landmarks including the ileocecal valve as well as the appendiceal office. Photodocumentation was obtained. Scope was then sequentially pulled back via the various segments of the colon including the ascending colon, hepatic flexure, transverse colon, splenic flexure, descending colon and finally into the rectosigmoid portions of the colon. Retroflexion maneuvers performed. The risks benefits and alternatives of the procedure explained to the patient in detail and informed consent is obtained.A GIF Olympus video scope was inserted into the patient's mouth and hypopharynx, the esophagus is identified intubated and insufflated ,the scope was then advanced through the esophagus stomach and duodenum ,retroflexion maneuver is done, the esophagus stomach and first and second portions of the duodenum examined PREOPERATIVE DIAGNOSIS: Blood in stool. Gastroesophageal reflux disease POSTOPERATIVE DIAGNOSIS: Gastritis status post biopsy. Right colon inflammation status post biopsy. Diverticulosis. Internal hemorrhoids OPERATION: Colonoscopy with biopsy. EGD with biopsy SURGEON: RODRÍGUEZ GRAHAM ANESTHESIA: LMAC TISSUE REMOVED OR ALTERED: As noted above. COMPLICATIONS: None. ESTIMATED BLOOD LOSS: None. INTRAOPERATIVE FINDINGS: As noted above. PROCEDURE: Patient tolerated the procedure well. No immediate postprocedure complications are noted. Patient is discharged in good condition. Discharge date 11/17/2019. Discharge diet: Regular. Discharge activity: Regular. 2 to 3-week follow-up to discuss findings. Patient is instructed call the office or proceed to the emergency room should there be any further problems or questions. Wait on the pathology.
[2019-11-17] MEDS ORDERED: SIMETHICONE 80 MG TAB.CHEW ONE (09:03)
[2019-11-17 09:28] VITALS: BP 132/68
== END 2019-11-17 09:39 | disposition home or self-care (01) ==
LOC: END 06:31
PROVIDERS: ATTEND Internal Medicine Gastroenterology
DX: K57.30 Diverticulosis of large intestine without perforation or abscess without bleeding (principal); K29.50 Unspecified chronic gastritis without bleeding; K64.8 Other hemorrhoids; K52.9 Noninfective gastroenteritis and colitis, unspecified; K20.9 Esophagitis, unspecified; K62.5 Hemorrhage of anus and rectum; K21.9 Gastro-esophageal reflux disease without esophagitis; F32.9 Major depressive disorder, single episode, unspecified; R12 Heartburn; R11.0 Nausea; E66.9 Obesity, unspecified; Z68.30 Body mass index [BMI] 30.0-30.9, adult; Z87.891 Personal history of nicotine dependence; Z88.6 Allergy status to analgesic agent; Z91.048 Other nonmedicinal substance allergy status; Z80.0 Family history of malignant neoplasm of digestive organs; Z91.010 Allergy to peanuts; Z79.899 Other long term (current) drug therapy; Z03.818 Encounter for observation for suspected exposure to other biological agents ruled out
CPT/HCPCS: 43239; 45380; 87635; 88305 ×2; 00813; J2704; C9803; 813